=== PATIENT | female | born 1995 | race Caucasian/White ===

== ENCOUNTER 2024-07-06 22:59 | Emergency (ER) | payer MEDICAID, SELFPAY ==
[2024-07-06 23:06] VITALS: BP 122/69; PULSE 60; RESP 17; TEMP 36.4; O2SAT 100
[2024-07-06 23:13] VITALS: BP 113/72; PULSE 77; RESP 14; O2SAT 99
--- NOTE | 2024-07-06 23:36 | CTR_ITS ---
PROCEDURE INFORMATION: Exam: CT Head Without Contrast Exam date and time: 07/06/2024 11:45 PM Age: 28 years old Clinical indication: Syncope and collapse; Patient HX: Syncopal episode TECHNIQUE: Imaging protocol: Computed tomography of the head without contrast. Radiation optimization: All CT scans at this facility use at least one of these dose optimization techniques: automated exposure control; mA and/or kV adjustment per patient size (includes targeted exams where dose is matched to clinical indication); or iterative reconstruction. COMPARISON: No relevant prior studies available. RADIATION DOSE METRICS: Total DLP (mGy-cm): 945.58 FINDINGS: Brain: No acute intracranial hemorrhage. No confluent lobar infarct. No mass effect. Cerebral ventricles: The ventricles and sulci are normal in size and shape for the patient's stated age. Paranasal sinuses: Visualized sinuses are unremarkable. No fluid levels. Mastoid air cells: Visualized mastoid air cells are well aerated. Bones: No acute calvarial fracture. Soft tissues: Visualized soft tissues are unremarkable. CT/CT head wo con* [id number] IMPRESSION: No acute intracranial abnormality. If symptoms persist, consider further evaluation with MRI, if MRI is clinically safe to obtain.
--- NOTE | 2024-07-06 23:37 | ECG_ITS ---
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 Measurements Intervals [place] Rate: 81 P: 76 AL: 205 QRS: 79 QRSD: 90 T: 9 QT: 397 QTc: 462 Interpretive Statements SINUS RHYTHM WITH SINUS ARRHYTHMIA POSSIBLE RIGHT VENTRICULAR CONDUCTION DELAY [RSR (QR) IN V1/V2] NONSPECIFIC ST & T-WAVE ABNORMALITY No previous ECG available for comparison Electronically Signed On 07-07-2024 20:33:08 CDT by Sheba Mcgarry M.D. [id number]
[2024-07-06 23:48] LABS: Basophils # 0.1 10^3/uL (0.0-0.1); Eosinophils # 0.5 10^3/uL (0.0-0.8); Lymphocytes # 3.2 10^3/uL (0.8-4.8); Lymphocytes % 42.2 %; Mean Corpuscular HGB Conc 33.8 g/dL (30-55); Mean Corpuscular Hemoglobin 29.6 pg (27-33); Mean Corpuscular Volume 87.7 fl (85-98); Mean Platelet Volume 9.7 fL (7.4-10.4); Monocytes # 0.5 10^3/uL (0.2-0.9); Monocytes % 6.4 %; Neutrophils # 3.32 10^3/uL (1.8-7.7); Neutrophils % 43.3 %; Nucleated Red Blood Cells % 0 %; Platelet Count 265 10^3/cmm (157-399); Red Blood Count 4.79 10^6/uL (3.85-5.65); White Blood Count 7.68 10^3/uL (3.29-11.43)
[2024-07-06 23:49] LABS: HCG, Serum Qual Negative (Negative)
--- NOTE | 2024-07-06 23:52 | XRR_ITS ---
PROCEDURE INFORMATION: Exam: XR Right Wrist Exam date and time: 07/06/2024 11:56 PM Age: 28 years old Clinical indication: Injury or trauma; Blunt trauma (contusions or hematomas); Right; Patient HX: C/O diffuse RT wrist pain post fall from syncope; Additional info: Fall wrist pain TECHNIQUE: Imaging protocol: Radiologic exam of the right wrist. Views: 3 or more views. COMPARISON: No relevant prior studies available. FINDINGS: Bones/joints: No acute bony abnormality. No suspcious lytic or blastic osseous lesions. Soft tissues: Unremarkable. XR/XR wrist RT min 3V* [id number] IMPRESSION: No acute bony abnormality. If symptoms persist, consider repeat plain films in 7-10 days.
[2024-07-06 23:57] LABS: Troponin(5th) Baseline < 6 ng/L (0-10)
[2024-07-06 23:58] LABS: Alanine Aminotransferase 16 U/L (0-33); Albumin Level 4.7 g/dL (3.5-5.2); Alkaline Phosphatase 47 U/L (35-105); Anion Gap 16.1 (5-19); Aspartate Amino Transferase 20 U/L (0-32); Blood Urea Nitrogen 14 mg/dL (6-20); Calcium 9.5 mg/dL (8.5-10.5); Carbon Dioxide 26 mmol/L (22-29); Chloride 102 mmol/L (98-107); Creatinine Clr Calc Pharmacy 98.1134; Globulin 2.3 g/dL (1.3-4.6); Glomerular Filtration Rate 99.6 mL/min (90-130); Glucose 115 mg/dL (65-115); Magnesium 1.8 mg/dL (1.7-2.3); Osmolality Calculated 291 mOsm/kg (285-295); Phosphorus 3.8 mg/dL (2.5-4.5); Potassium 4.1 mmol/L (3.5-5.1); Sodium 140 mmol/L (136-145); Total Bilirubin 0.2 mg/dL (0.15-1.2)
[2024-07-07 00:07] VITALS: BP 113/72; PULSE 67; O2SAT 99
--- NOTE | 2024-07-07 00:08 | ED_ITS ---
HPI - Dizziness 2 General: Chief Complaint: Dizziness Stated Complaint: fall then seizure Time Seen by Provider: 07/06/24 23:32 History of Present Illness: HPI Narrative: 28-year-old female who slipped on concre te steps, and fell catching herself with the right wrist. She has significant wrist pain. A few minutes afterwards, she was standing, felt faint, and had a syncopal episode. Her caught her and helped her. She did not hit her head. Episode lasted 30 seconds or so. During this time, her eyes rolled back in her head, and she shook all extremities according to her . She woke up somewhat confused, but this cleared quickly. She does not remember the event. She does have a history of syncopal episodes, mainly with giving blood or having blood taken from her. She reports heavier periods for the last 2 years. She does not believe she is . Related Data Allergies Allergy/AdvReac Type Severity Reaction Status Date / Time Latex, Natural Rubber Allergy ALGY-Rash Verified 07/06/24 23:13 Penicillins Allergy Unknown Verified 07/06/24 23:13 Physical Exam 2 Const: COMMON NORMALS: no acute distress, patient oriented x3 and alert G ENERAL APPEARANCE: cooperative; not ill appearing and not frail appearing HENMT: COMMON NORMALS: normocephalic, atraumatic and Normal external nose present HEAD & SCALP: normocephalic and atraumatic FACE & SINUS: normal facial exam and face symmetric NOSE: Normal external nose present Eye: COMMON NORMALS: Equal, round and reactive pupils present and EOMs intact bilaterally PUPIL: Yes Equal, round and reactive pupils present Neck/C-Spine: GENERAL: Yes trachea midline Chest: CHEST: Yes Symmetrical chest wall rise Resp: COMMON NORMALS: normal respiratory effort, No retractions, No use of accessory muscles and clear to auscultation bilaterally AUSCULTATION: clear to auscultation bilaterally Cardio: COMMON NORMALS: regular rate and regular rhythm RATE: regular rate RHYTHM: regular rhythm GI: COMMON NORMALS: Normal to inspection, nondistended, normoactive bowel sounds present Extremity: COMMON NORMALS: no pedal edema Neuro: GUSTAVO COMA SCALE: document GCS findings [place] coma scale eye opening: Spontaneous Gustavo coma scale verbal response: Orientated [place] coma scale motor response: Obey commands [place] coma scale total score: 15 COMMON NORMALS: patient oriented x3 SENSORIUM/ORIENTATION: Yes alert CRANIAL NERVES: Yes CN normal except as noted COORDINATION/BALANCE: [id number] test normal and vsft-rq-zybb test normal SPEECH: speech normal SENSORY EXAM: Yes extremities (intact) MOTOR EXAM: Pronator motor function not present, no tremor noted and Normal motor muscle tone present throughout C OORDINATION: [id number]-yw-[id number] test normal and myke-ns-qcpw test normal Psych: COMMON NORMALS: speech normal SPEECH: Yes normal speech Skin: COMMON NORMALS: no rashes or lesions noted GENERAL SKIN EXAM: no rashes or lesions noted Course 2 Vital Signs: Vital signs: Vital Signs Temperature 97.5 F L 07/07/24 01:08 Pulse Rate 67 07/07/24 01:08 Respiratory Rate 14 07/07/24 01:08 Blood Pressure 106/73 07/07/24 01:08 Pulse Oximetry 98 07/07/24 01:08 Oxygen Delivery Me thod Room Air 07/07/24 00:45 MDM - Dizziness Medical Decision Making Normal neurological exam. Blood pressure is normal. Other vitals stable. CBC is normal. BMP is normal. Head CT shows no acute intracranial abnormality. Troponin is nondetectable. EKG shows sinus rhythm with sinus arrhythmia. Rate is 80. Intervals are normal. No significant ST wave changes. EKG is timed 00: 16. Wrist x-ray reveals no fracture. Urinalysis is negative. She has received fluids. This is likely vagal syncope from pain related to her wrists. She is feeling improved. She will be allowed discharge. Return for new or worsening symptoms. Lab Data 07/06/24 23:28 07/06/24 23:[address] 07/06/24 23:36 IMPRESSION: No acute intracranial abnormality. If symptoms persist, consider further evaluation with MRI, if MRI is clinically safe to obtain. Wrist X-Ray 07/06/24 23:52 IMPRESSION: No acute bony abnormality. If symptoms persist, consider repeat plain films in 7-10 days. Laboratory Results WBC 7.68 10^3/uL (3.29-11.43) 07/06/24 23:28 RBC 4.79 10^6/uL (3.85-5.65) 07/06/24 23:28 Hgb 14.20 g/dL (11.27-16.99) 07/06/24 23:28 Hct 42.0 % (36-47) 07/06/24: MCV 87.7 fl (85-98) 07/06/24: MCH 29.6 pg (27-33) 07/06/24: MCHC 33.8 g/dL (30-55) 07/06/24: RDW 12.0 % (12.1-15.1) L 07/06/24: Plt Count 265 10^3/cmm (157-399) 07/06/24: MPV 9.7 fL (7.4-10.4) 07/06/24: Neut % (Auto) 43.3 % 07/06/24: Lymph % (Auto) 42.2 % 07/06/24: [place] % (Auto) 6.4 % 07/06/24: Eos % (Auto) 7.0 % 07/06/24: Baso % (Auto) 1.0 % 07/06/24 Neut # (Auto) 3.32 10^3/uL (1.8-7.7) 07/06/24: Lymph # (Auto) 3.2 10^3/uL (0.8-4.8) 07/06/24: [place] # (Auto) 0.5 10^3/uL (0.2-0.9) 07/06/24: Eos # (Auto) 0.5 10^3/uL (0.0-0.8) 07/06/24: Baso # (Auto) 0.1 10^3/uL (0.0-0.1) 07/06/24: Nucleated RBC % (auto) 0 % 07/06/24 Nucleated RBCs # 0.0 /100WBC 07/06/24: Sodium 140 mmol/L (136-145) 07/06/24: Potassium 4.1 mmol/L (3.5-5.1) 07/06/24: Chloride 102 mmol/L (98-107) 07/06/24: Carbon Dioxide 26 mmol/L (22-29) 07/06/24: Anion Gap 16.1 (5-19) 07/06/24 23:28 BUN 14 mg/dL (6-20) 07/06/24 23:28 Creatinine 0.7 mg/dL (0.5-0.9) 07/06/24 23:28 GFR Calculation 99.6 mL/min (90-130) 07/06/24 23:28 Glucose 115 mg/dL (65-115) 07/06/24 23:28 Calculated Osmolality 291 mOsm/kg (285-295) 07/06/24 23:28 Calcium 9.5 mg/dL (8.5-10.5) 07/06/24 23:28 Phosphorus 3.8 mg/dL (2.5-4.5) 07/06/24 23: Magnesium 1.8 mg/dL (1.7-2.3) 07/06/24 23: Total Bilirubin 0.2 mg/dL (0.15-1.2) 07/06/24 23:28 AST 20 U/L (0-32) 07/06/24 23:28 ALT 16 U/L (0-33) 07/06/24 23:28 Alkaline Phosphatase 47 U/L (35-105) 07/06/24 23:28 Troponin T Baseline < 6 ng/L (0-10) 07/06/24 23:28 C-Reactive Protein 3.0 mg/L (0.0-4.9) 07/06/24 23:28 Total Protein 7.0 g/dL (6.6-8.7) 07/06/24 23:28 Albumin 4.7 g/dL (3.5-5.2) 07/06/24 23:28 Globulin 2.3 g/dL (1.3-4.6) 07/06/24 23:28 HCG, Qual Negative (Negative) 07/06/24 23:28 Urine Color Yellow (Yellow) 07/06/24 23:59 Urine Appearance Clear (CLEAR) 07/06/24 23:59 Urine pH 6.5 (5-7) 07/06/24 23:59 Ur Specific [place] 1.013 (1.005-1.030) 07/06/24 23:59 Urine Protein Negative (Negative) 07/06/24 23:59 Urine Glucose (UA) Negative (Normal) 07/06/24 23:59 Urine Ketones Negative (Negative) 07/06/24 23:59 Urine Blood Negative (Negative) 07/06/24 23:59 Urine Nitrate Negative (Negative) 07/06/24 23:59 Urine Bilirubin Negative (Negative) 07/06/24 23:59 Urine Urobilinogen 1.0 mg/dL (Negative) 07/06/24 23:59 Ur Leukocyte Esterase Negative (Negative) 07/06/24 23:59 Urine RBC 0-2 /hpf (0-2) 07/06/24 23:59 Urine WBC 0-5 /hpf (0-5) 07/06/24 23:59 Ur Squamous Epith Cells 0-5 /hpf (0-5) 07/06/24 23:59 Amorphous Sediment Not Reportable 07/06/24 23:59 Urine Bacteria None seen /hpf (NONE) 07/06/24 23:59 Hyaline Casts 0-4 /lpf H 07/06/24 23:59 All radiology interpretation(s) finalized by discharge Discharge Plan Discharge Patient Disposition: Home Clinical Impression: Syncope Condition: Stable Discharge Orders: Discharge ED (Routine); Ordered 07/07/24 Ordered By: Merrill Nelson Patient Instructions: Syncope (ED), Opioid Safety, Pain Management Activity Restrictions/Additional Instructions: Plenty of clear liquids for the next 24 to 48 hours. Stay in a cool environment for the next 24 hours. Return for repeated episodes of syncope or passing out, chest discomfort, mental status changes, weakness, language problems, any other concerning symptoms. Follow-up with your doctor. Coding Level of Care Code ED Marketing Manager Health Communications for Jocelyne Wagner
[2024-07-07] MEDS: sodium chloride 0.9% 1,000 ML 999 ML IV (00:20)
[2024-07-07 00:27] LABS: Charge for UA Resulting for Rev
[2024-07-07 00:28] LABS: Bilirubin Urine Negative (Negative); Blood Urine Negative (Negative); Glucose Urine UA Negative (Normal); Ketones Urine Negative (Negative); Leukocyte Esterase Urine Negative (Negative); Nitrate Urine Negative (Negative); Protein Urine Negative (Negative); Specific Gravity, Urine 1.013 (1.005-1.030); Urine Appearance Clear (CLEAR); Urine Color Yellow (Yellow); pH Urine 6.5 (5-7)
[2024-07-07 00:33] LABS: Bacteria Urine None Seen /hpf; Hyaline Casts Urine 0-4 /lpf; RBC Urine 0-2 /hpf (0-2); Squamous Epithelial Cell Urine 0-5 /hpf (0-5); WBC Urine 0-5 /hpf (0-5)
[2024-07-07 00:45] VITALS: BP 106/73; PULSE 67; RESP 14; O2SAT 98
[2024-07-07 01:08] VITALS: BP 106/73; PULSE 67; RESP 14; TEMP 36.4; O2SAT 98
== END 2024-07-07 01:09 | disposition home or self-care (01) ==
PROVIDERS: Emergency Provider Emergency Medicine
DX: R55 Syncope and collapse (principal)
CPT/HCPCS: 70450; 73110; 80053; 81003; 81015; 83735; 84100; 84484; 84703; 85025; 86140; 93005; 99285; J7030

== ENCOUNTER 2024-09-13 22:11 | Emergency (ER) | payer MEDICAID, SELFPAY ==
[2024-09-13 22:22] VITALS: BP 137/82; PULSE 160; RESP 30; TEMP 36.7; O2SAT 100; BMI 17.2
--- NOTE | 2024-09-13 22:36 | ECG_ITS ---
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 Measurements Intervals [place] Rate: 160 P: 82 HI: 115 QRS: 84 QRSD: 89 T: -19 QT: 302 QTc: 494 Interpretive Statements SINUS TACHYCARDIA ST DEVIATION AND MODERATE T-WAVE ABNORMALITY, CONSIDER INFERIOR ISCHEMIA Compared to ECG 07/07/2024 00:16:38 Possible ischemia now present T-wave abnormality still present Electronically Signed On 09-14-2024 13:40:59 CDT by Chris Mueller M.D. [id number]
--- NOTE | 2024-09-13 22:47 | XRR_ITS ---
PROCEDURE INFORMATION: Exam: XR Chest Exam date and time: 09/13/2024 10:55 PM Age: 28 years old Clinical indication: Patient HX: Tachycardia; Palpitations TECHNIQUE: Imaging protocol: Radiologic exam of the chest. Views: 1 view. COMPARISON: CR XR chest 1V [id number] 03/08/2018 8:29 PM FINDINGS: Lungs: Unremarkable. No consolidation. Pleural spaces: Unremarkable. No pleural effusion. No pneumothorax. Heart/Mediastinum: Unremarkable. No cardiomegaly. Bones/joints: Unremarkable. XR/XR chest 1V portable [id number] IMPRESSION: No acute findings.
--- NOTE | 2024-09-13 22:52 | W.ED.ARRPALP ---
HPI - Arrhythmia/Palpitations General: Chief Complaint: Arrhythmia/Palpitations Stated Complaint: Legs Hurt\Dizzy Time Seen by Provider: 09/13/24 22:39 History of Present Illness: 28-year-old healthy female. She reports while putting the children to bed, after having come in from outside, she began to get dizzy, shaky, and feel weak. She did not pass out. took her pulse which was very fast. She continued to have the symptoms. She presents with a heart rate of 160. She denies significant anxiety or caffeine intake. No other symptoms. She has not been ill recently otherwise. She does have a history of syncopal episodes, infrequently. She was seen after a syncopal episode in June. Related Data Allergies Allergy/AdvReac Type Severity Reaction Status Date / Time Latex, Natural Rubber Allergy ALGY-Rash Verified 07/06/24 23:13 Penicillins Allergy Unknown Verified 07/06/24 23:13 COUNTS INCLUDE 234 BEDS AT THE [facility] ED Female Reproductive History: Date of last menstrual period: 09/13/24 Physical Exam Const: COMMON NORMALS: alert GENERAL APPEARANCE: cooperative and anxious HENMT: COMMON NORMALS: normocephalic, atraumatic and Normal external nose present HEAD & SCALP: normocephalic and atraumatic FACE & SINUS: normal facial exam and face symmetric NOSE: Normal external nose present Eye: COMMON NORMALS: Equal, round and reactive pupils present and EOMs intact bilaterally PUPIL: Yes Equal, round and reactive pupils present Neck/C-Spine: GENERAL: Yes trachea midline Chest: CHEST: Yes Symmetrical chest wall rise Resp: COMMON NORMALS: normal respiratory effort, No retractions, No use of accessory muscles and clear to auscultation bilaterally AUSCULTATION: clear to auscultation bilaterally Cardio: COMMON NORMALS: regular rhythm RATE: tachycardic RHYTHM: regular rhythm GI: COMMON NORMALS: Normal to inspection, nondistended, normoactive bowel sounds present Extremity: COMMON NORMALS: no pedal edema Neuro: GUSTAVO COMA SCALE: document GCS findings [place] coma scale eye opening: Spontaneous [place] coma scale verbal response: Orientated [place] coma scale motor response: Obey commands [place] coma scale total score: 15 SENSORIUM/ORIENTATION: Yes alert SENSORY EXAM: Yes extremities (intact) Psych: COMMON NORMALS: speech normal SPEECH: Yes normal speech Skin: COMMON NORMALS: no rashes or lesions noted GENERAL SKIN EXAM: no rashes or lesions noted Course Vital Signs: Vital signs: Vital Signs Temperature 98.1 F 09/13/24 22:22 Pulse Rate 86 09/14/24 02:45 Respiratory Rate 18 09/14/24 02:45 Blood Pressure 105/68 09/14/24 02:45 Pulse Oximetry 95 09/14/24 02:45 Oxygen Delivery Me thod Room Air 09/14/24 02:07 MDM - Arrhythmia/Palpitations Medical Decision Making Patient presents with significant tachycardia. Her ventricular heart rate is 160. She does appear to have P waves on her EKG. She is symptomatic with this. She is normotensive. Other vitals are good. Patient did admit to smoking medical grade marijuana prior to this episode, which may have some merit given the anxiety component. She was initially given a 1L saline bolus, 10mg diltiazem, 0.5mg ativan with reduction of her rate to 120s-130s. EKG confirms sinus tachycardia at that point. Less symptoms, still somewhat anxious. after 2L of fluid, 20mg diltiazem, 3mg haldol, patient resting comfortably with sinus rate in the 80s. Other vitals quite good. Blood sugar elevated at 242. No acidosis. troponin stayed normal at 2h. Chest x-ray normal. D Dimer neg. TSH normal. No other cause identified. 160 as a rate is quite high. she does have a hx of syncopal episodes. worth a holter monitor. orders written for this and case management asked to help. outpatient follow up. return for any return of symptoms. avoid marijuana as may be culprit. Lab Data 09/13/24 22:56 09/13/24 22:56 Radiology Impressions Chest X-Ray 09/13/24 22:47 IMPRESSION: No acute findings. Laboratory Results WBC 10.49 10^3/uL (3.29-11.43) 09/13/24 22:56 RBC 4.72 10^6/uL (3.85-5.65) 09/13/24 22:56 Hgb 13.90 g/dL (11.27-16.99) 09/13/24 22:56 Hct 41.3 % (36-47) 09/13/24 22:56 MCV 87.5 fl (85-98) 09/13/24 22:56 MCH 29.4 pg (27-33) 09/13/24 22:56 MCHC 33.7 g/dL (30-55) 09/13/24 22:56 RDW 11.8 % (12.1-15.1) L 09/13/24 22:56 Plt Count 325 10^3/cmm (157-399) 09/13/24 22:56 MPV 9.2 fL (7.4-10.4) 09/13/24 22:56 Neut % (Auto) 43.8 % 09/13/24 22:56 Lymph % (Auto) 45.4 % 09/13/24 22:56 [place] % (Auto) 5.0 % 09/13/24 22:56 Eos % (Auto) 4.8 % 09/13/24 22:56 Baso % (Auto) 0.9 % 09/13/24 22:56 Neut # (Auto) 4.61 10^3/uL (1.8-7.7) 09/13/24 22:56 Lymph # (Auto) 4.8 10^3/uL (0.8-4.8) 09/13/24 22:56 [place] # (Auto) 0.5 10^3/uL (0.2-0.9) 09/13/24 22:56 Eos # (Auto) 0.5 10^3/uL (0.0-0.8) 09/13/24 22:56 Baso # (Auto) 0.1 10^3/uL (0.0-0.1) 09/13/24 22:56 Nucleated RBC % (auto) 0 % 09/13/24 22:56 Nucleated RBCs # 0.0 /100WBC 09/13/24 22:56 PT 12.80 SECONDS (12.1-14.9) 09/13/24 22:56 INR 0.93 (0.8-1.2) 09/13/24 22:56 APTT 25.5 SECONDS (23.9-36.7) 09/13/24 22:56 D-Dimer 0.40 ug/mLFEU (0-0.59) 09/13/24 22:56 Sodium 135 mmol/L (136-145) L 09/13/24 22:56 Potassium 3.5 mmol/L (3.5-5.1) 09/13/24 22:56 Chloride 98 mmol/L (98-107) 09/13/24 22:56 Carbon Dioxide 23 mmol/L (22-29) 09/13/24 22:56 Anion Gap 17.5 (5-19) 09/13/24 22:56 BUN 17 mg/dL (6-20) 09/13/24 22:56 Creatinine 0.7 mg/dL (0.5-0.9) 09/13/24 22:56 GFR Calculation 99.6 mL/min (90-130) 09/13/24 22:56 Glucose 242 mg/dL (65-115) H 09/13/24 22:56 Calculated Osmolality 290 mOsm/kg (285-295) 09/13/24 22:56 Calcium 8.6 mg/dL (8.5-10.5) 09/13/24 22:56 Magnesium 2.0 mg/dL (1.7-2.3) 09/13/24 22:56 Total Bilirubin 0.4 mg/dL (0.15-1.2) 09/13/24 22:56 AST 19 U/L (0-32) 09/13/24 22:56 ALT 13 U/L (0-33) 09/13/24 22:56 Alkaline Phosphatase 46 U/L (35-105) 09/13/24 22:56 Troponin T Baseline < 6 ng/L (0-10) 09/13/24 22:56 Troponin T 120 Minute 6.87 ng/L (0-10) 09/14/24 00:38 Delta Troponin T 0.88304 ABS# (0-10) 09/14/24 00:38 NT-Pro-B Natriuret Pep < 36 pg/mL (0-125) 09/13/24 22:56 Total Protein 6.9 g/dL (6.6-8.7) 09/13/24 22:56 Albumin 4.9 g/dL (3.5-5.2) 09/13/24 22:56 Globulin 2.0 g/dL (1.3-4.6) 09/13/24 22:56 TSH 1.77 uIU/mL (0.27-4.20) 09/13/24 22:56 HCG, Qual Negative (Negative) 09/14/24 02:04 Urine Opiates Screen Negative ng/mL (Negative) 09/14/24 02:04 Ur Barbiturates Screen Negative ng/mL (Negative) 09/14/24 02:04 Ur Phencyclidine Scrn Negative ng/mL (Negative) 09/14/24 02:04 Ur Amphetamines Screen Negative ng/mL (Negative) 09/14/24 02:04 U Benzodiazepines Scrn Negative ng/mL (Negative) 09/14/24 02:04 Urine Cocaine Screen Negative ng/mL (Negative) 09/14/24 02:04 U Marijuana (THC) Screen Positive ng/mL (Negative) H 09/14/24 02:04 All radiology interpretation(s) finalized by discharge Discharge Plan Discharge Patient Disposition: Home Clinical Impression: Sinus tachycardia Condition: Stable Discharge Orders: Discharge ED (Routine); Ordered 09/14/24 Ordered By: Merrill Nelson Patient Instructions: Tachycardia (ED), Opioid Safety, Pain Management Activity Restrictions/Additional Instructions: Return for repeated episodes of palpitations or fast heartbeats, chest discomfort, fever, shortness of breath, any other concerning symptoms. See your doctor next week. Call Monday for an appointment. Further outpatient testing may be necessary. Avoid ingestion of any stimulants such as caffeine, chocolate, etc. Coding Level of Care Code ED Electromechanical Engineer for Jocelyne Wagner
[2024-09-13 23:05] LABS: Basophils # 0.1 10^3/uL (0.0-0.1); Basophils % 0.9 %; Eosinophils # 0.5 10^3/uL (0.0-0.8); Eosinophils % 4.8 %; Hematocrit 41.3 % (36-47); Lymphocytes # 4.8 10^3/uL (0.8-4.8); Lymphocytes % 45.4 %; Mean Corpuscular HGB Conc 33.7 g/dL (30-55); Mean Corpuscular Hemoglobin 29.4 pg (27-33); Mean Corpuscular Volume 87.5 fl (85-98); Mean Platelet Volume 9.2 fL (7.4-10.4); Monocytes # 0.5 10^3/uL (0.2-0.9); Neutrophils # 4.61 10^3/uL (1.8-7.7); Neutrophils % 43.8 %; Nucleated Red Blood Cells % 0 %; Platelet Count 325 10^3/cmm (157-399); Red Blood Count 4.72 10^6/uL (3.85-5.65); Red Cell Distribution Width 11.8 % (12.1-15.1); White Blood Count 10.49 10^3/uL (3.29-11.43)
[2024-09-13] MEDS: dilTIAZem 5 mg/mL SDV 5 mL 10 MG IVP (23:08)
[2024-09-13] MEDS: LORazepam 2 mg/mL INJ 1 mL 0.5 MG IVP (23:09)
[2024-09-13] MEDS: sodium chloride 0.9% 1,000 ML 999 ML IV (23:09)
[2024-09-13 23:14] VITALS: BP 130/85; PULSE 147; RESP 20; O2SAT 99
[2024-09-13 23:30] LABS: INR 0.93 (0.8-1.2)
[2024-09-13 23:31] LABS: Partial Thromboplastin Time 25.5 SECONDS (23.9-36.7)
[2024-09-13 23:33] LABS: Troponin(5th) Baseline < 6 ng/L (0-10)
[2024-09-13 23:40] LABS: Alanine Aminotransferase 13 U/L (0-33); Albumin Level 4.9 g/dL (3.5-5.2); Alkaline Phosphatase 46 U/L (35-105); Anion Gap 17.5 (5-19); Aspartate Amino Transferase 19 U/L (0-32); Blood Urea Nitrogen 17 mg/dL (6-20); Calcium 8.6 mg/dL (8.5-10.5); Carbon Dioxide 23 mmol/L (22-29); Chloride 98 mmol/L (98-107); Creatinine Clr Calc Pharmacy 94.2461; Glomerular Filtration Rate 99.6 mL/min (90-130); Glucose 242 mg/dL (65-115); NT Pro B Type Natriuretic Pept < 36 pg/mL (0-125); Osmolality Calculated 290 mOsm/kg (285-295); Potassium 3.5 mmol/L (3.5-5.1); Sodium 135 mmol/L (136-145); Thyroid Stimulating Hormone 1.77 uIU/mL (0.27-4.20); Total Bilirubin 0.4 mg/dL (0.15-1.2); Total Protein 6.9 g/dL (6.6-8.7)
[2024-09-14] MEDS: LORazepam 2 mg/mL INJ 1 mL 0.5 MG IVP (00:08)
[2024-09-14 00:13] VITALS: BP 120/79; PULSE 127; RESP 18; O2SAT 97
--- NOTE | 2024-09-14 00:40 | ECG_ITS ---
[employer] [facility] Test Date: 2024-09-14 Pat Name: Drew Matias Department: Room: Gender: Female Patient Registration Rep: : 1995 Requested By: Merrill Olgesby Order Number: [id number] Javier MD: Chris Mueller M.D. Measurements Intervals [place] Rate: 125 P: 66 NE: 166 QRS: 80 QRSD: 87 T: -25 QT: 336 QTc: 484 Interpretive Statements SINUS TACHYCARDIA NONSPECIFIC ST & T-WAVE ABNORMALITY Compared to ECG 07/07/2024 00:16:38 Sinus rhythm no longer present T-wave abnormality still present Electronically Signed On 09-14-2024 13:47:45 CDT by Chris Mueller M.D. [id number]
[2024-09-14 01:02] LABS: Troponin 5 2HR 6.87 ng/L (0-10); Troponin 5 2HR Delta 0.87001 ABS# (0-10)
[2024-09-14] MEDS: dilTIAZem 5 mg/mL SDV 5 mL 20 MG IVP (01:18)
[2024-09-14] MEDS: sodium chloride 0.9% 1,000 ML 999 ML IV (01:18)
[2024-09-14] MEDS: haloperidol inj 5 mg/mL INJ 1 mL 3 MG IVP (01:21)
[2024-09-14 01:43] VITALS: BP 111/64; PULSE 93; RESP 17; O2SAT 95
[2024-09-14 02:07] VITALS: BP 92/54; PULSE 82; RESP 17; O2SAT 94
[2024-09-14 02:21] LABS: HCG Qualitative Urine. Negative (Negative)
[2024-09-14 02:26] LABS: Amphetamines Screen Urine Negative (Negative); Barbiturates Screen Urine Negative (Negative); Benzodiazepines Screen Urine Negative (Negative); Cocaine Screen Urine Negative (Negative); Opiate Screen Urine Negative (Negative); PCP Screen Urine Negative (Negative); THC Screen Urine Positive (Negative)
[2024-09-14 02:45] VITALS: BP 105/68; PULSE 86; RESP 18; O2SAT 95
--- NOTE | 2024-09-17 08:56 | DCPLANNER ---
Message sent to Cardiology for Holter Monitor.
== END 2024-09-14 02:45 | disposition home or self-care (01) ==
PROVIDERS: Emergency Provider Emergency Medicine
DX: R00.0 Tachycardia, unspecified (principal)
CPT/HCPCS: 36415; 71045; 80053; 80306; 81025; 83735; 83880; 84443; 84484; 85025; 85378; 85610; 85730; 93005; 96361; 96374; 96375; 96376; 99285; J1630; J2060; J3490; J7030

== ENCOUNTER → 2025-02-18 16:57 | Outpatient (BNVA) | payer MEDICAID, SELFPAY | PROVIDERS: PCP Family Medicine; Visit Provider Family Medicine | DX: Z00.00 Encounter for general adult medical examination without abnormal findings (principal) | CPT/HCPCS: 87624 ==